=== PATIENT | male | born 1975 | race Caucasian/White ===

== ENCOUNTER 2017-03-06 22:24 | Emergency (ER) | payer OTHER ==
[~2017-03-06 22:24] MED LIST: ABILIFY10 MG; ACIPHEX20 MG PO; ADVIL200 M1 PO; ALPRAZOLAM0.5 MG PO; ALPRAZOLAM1 M1 PO; ALPRAZOLAM1 MG; CATAPRES0.1 MG PO; COUMADIN5 MG PO; DEPAKOTE ER500 MG PO; DEPAKOTE500 MG; DEPAKOTE500 MG PO; FLEXERIL10 MG PO; GABAPENTIN300 MG PO; KEFLEX500 M4 PO; LAMICTAL; LAMICTAL150 M1 PO; LAMICTAL200 M2 PO; LEXAPRO10 MG; LEXAPRO10 MG PO; LEXAPRO20 MG PO; LOVENOX120 MG/0.8 SQ; MILK OF MA400 MG/5 M PO; NABUMETONE500 MG PO; NORCO 5/325 TAB1 TAB PO; PAXIL20 MG PO; PERCOCET 10/31 UDTAB PO; PERCOCET 5/3251 TAB PO; PERCOCET 7.5/321 TA1 PO; SENOKOT-S TABLE1 TAB PO; TRAZODONE100 MG PO; TRILEPTAL300 MG PO; VALIUM5 MG PO; VICODIN 5/500 T1 TAB PO; ZOLOFT100 M1 PO; ZYPREXA10 MG PO
[2017-03-06] MEDS ORDERED: ELIQUIS5 M1 PO (22:45)
[2017-03-06] MEDS ORDERED: LAMOTRIGINE PO (22:53)
== END 2017-03-06 23:45 ==
LOC: EDMED 22:24
PROC: 0HQEXZZ Repair Left Lower Arm Skin, External Approach (ICD-10-PCS; principal; 2017-03-06)
DX: S51.812A Laceration without foreign body of left forearm, initial encounter (principal); F17.210 Nicotine dependence, cigarettes, uncomplicated; W45.8XXA Other foreign body or object entering through skin, initial encounter; Y92.019 Unspecified place in single-family (private) house as the place of occurrence of the external cause